=== PATIENT | female | born 2000 | race African-American/Black ===

== ENCOUNTER 2018-12-25 11:48 | Emergency (ER) | payer OTHER, SELFPAY ==
[2018-12-25] MEDS ORDERED: NA CHLORIDE 0.9% 1,000 ML ONE (12:25)
[2018-12-25 12:38] LABS: Urine Blood NEGATIVE (NEG); Urine Glucose NEGATIVE (NEG); Urine Protein 1+ (NEG); Urine pH 7.5 (5.0-7.0)
[2018-12-25 12:42] LABS: Absolute Lymphocytes (CBC) 1.4 K/uL (0.7-4.9); Basophils % 0.4 % (0-1.3); Eosinophils % 1.9 % (0-4.4); Hematocrit 43.1 % (36.0-45.0); Lymphocytes % 18.7 % (15.3-44.8); MPV 8.1 fL (7.6-11.3); Monocytes % 6.3 % (3.3-12.3); RBC Red Blood Cell Count 4.79 M/uL (3.86-4.86)
[2018-12-25 12:56] LABS: Urine Amorphous Sediment 2+ /HPF (NONE SEEN); Urine Bacteria <20 /HPF (<20); Urine Culture Reflex Order REFLEXED; Urine Mucus LIGHT /HPF (NONE SEEN); Urine RBC <5 /HPF (NONE SEEN)
[2018-12-25 12:58] LABS: BUN Blood Urea Nitrogen 7 mg/dL (7-18); Bicarbonate 24 mmol/L (21-32); Glucose Level 80 mg/dL (74-106); Potassium 3.8 mmol/L (3.5-5.1); Sodium Level 140 mmol/L (136-145)
--- NOTE | 2018-12-25 13:37 | ER ---
Nurse's Notes [facility] Name: Gina Duran Age: 18 yrs Sex: Female : 2000 Arrival Date: 12/25/2018 Time: 11:51 Bed 19 Private MD: Diagnosis: 8 weeks gestation of Presentation: 12/25 11:53 Presenting complaint: Patient states: i have this abdominal pain for a week now and its hj getting worse, reports nausea, denies vomiting; denies diarrhea; denies fever and chills;. Transition of care: patient was not received from another setting of care. Onset of symptoms was December 25, 2018. Risk Assessment: Do you want to hurt yourself or someone else? Patient reports no desire to harm self or others. Initial Sepsis Screen: Does the patient meet any 2 criteria? No. Patient's initial sepsis screen is negative. Does the patient have a suspected source of infection? No. Patient's initial sepsis screen is negative. Care prior to arrival: None. 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 - Social history:: Smoking status: Patient/guardian denies using tobacco. - Ebola Screening: : Patient negative for fever greater than or equal to 101.5 degrees Fahrenheit, and additional compatible Ebola Virus Disease symptoms Patient denies exposure to infectious person Patient denies travel to an Ebola-affected area in the 21 days before illness onset No symptoms or risks identified at this time. Screenin:10 Abuse screen: Denies threats or abuse. Nutritional screening: No deficits noted. em Tuberculosis screening: No symptoms or risk factors identified. Fall Risk None identified. Assessment: 12:10 General: Appears in no apparent distress. comfortable, Behavior is calm, cooperative, em Denies fever. Pain: Complains of pain in abdomen Pain currently is 7 out of 10 on a pain scale. Pain began x 1 week. Neuro: Level of Consciousness is awake, alert, obeys commands, Oriented to person, place, time, situation. Cardiovascular: Capillary refill < 3 seconds Patient's skin is warm and dry. Respiratory: Airway is patent Respiratory effort is even, unlabored, Respiratory pattern is regular, symmetrical. GI: Abdomen is flat, Bowel sounds present X 4 quads. Abd is soft X 4 quads Abd is non tender X 4 quads Reports nausea, Patient currently denies diarrhea, vomiting. : Denies burning with urination. Derm: Skin is intact, is healthy with good turgor, Skin is pink, warm \T\ dry. Musculoskeletal: Capillary refill < 3 seconds, Range of motion: intact in all extremities. 12:12 Reassessment: I agree with the assessment made with Kolton ORNELAS. 13:19 Reassessment: Patient appears in no apparent distress at this time. Patient and/or em family updated on plan of care and expected duration. Pain level reassessed. Patient is alert, oriented x 3, equal unlabored respirations, skin warm/dry/pink. Patient states feeling better. Patient states symptoms have improved. 13:32 Reassessment: US at bedside. em Vital Signs: 11:54 BP 114 / 78; Pulse 86; Resp 16; Temp 98.9(O); Pulse Ox 98% on R/A; Weight 54.43 kg; hj Height 5 ft. 6 in. (167.64 cm); Pain 7/10; 13:20 BP 118 / 89; Pulse 66; Resp 18; Pulse Ox 99% on R/A; em 11:54 Body Mass Index 19.37 (54.43 kg, 167.64 cm) ED Course: 11:51 Patient arrived in ED. mr 11:54 Triage completed. hj 11:54 Arm band placed on right wrist. hj 11:55 Ruthie Coyne FNP-C is PHCP. kb 11:55 Jas Sidhu MD is Attending Physician. kb 12:01 Kolton Billy LVN is Primary Nurse. em 12:10 Patient has correct armband on for positive identification. Bed in low position. Call em light in reach. Adult w/ patient. Pulse ox on. NIBP on. 12:10 Initial lab(s) drawn, by me, sent to lab. Inserted saline lock: 22 gauge in right em antecubital area, using aseptic technique. Blood collected. 13:38 US Transvaginal Ob In Process Unspecified. EDMS 13:47 No provider procedures requiring assistance completed. IV discontinued, intact, em bleeding controlled, No redness/swelling at site. Pressure dressing applied. Administered Medications: 12:06 CANCELLED (Physician Discretion): Zofran 4 mg IVP once; over 2 minutes kb 12:20 Drug: NS 0.9% 1000 ml Route: IV; Rate: 1000 ml; Site: right antecubital; em 13:40 Follow up: IV Status: Completed infusion; IV Intake: 1000ml em Intake: 13:40 IV: 1000ml; Total: 1000ml. em Outcome: 13:36 Discharge ordered by MD. kb 13:47 Discharged to home ambulatory. em 13:47 Condition: good 13:47 Discharge instructions given to patient, Instructed on discharge instructions, follow up and referral plans. Demonstrated understanding of instructions, follow-up care. 13:48 Patient left the ED. em Signatures: Dispatcher [employer] EDWY Ruthie Coyne, LITHOGRAPHIC GENERAL WORKER-C LITHOGRAPHIC GENERAL WORKER-Ckb Maksim Stanton, RN RN Nona Chaudhry mr Kolton Billy, THIRD LOADER THIRD LOADER Henrry Montalvo, RN RN jim Corrections: (The following items were deleted from the chart) 11:56 11:54 54.43 kg; Height 5 ft. 6 in.; BMI: 19.3; Pain 7/10; jim fernandez
--- NOTE | 2018-12-25 13:37 | EDPHYS ---
Physician Documentation [facility] Name: Gina Duran Age: 18 yrs Sex: Female : 2000 Arrival Date: 12/25/2018 Time: 11:51 Bed 19 Private MD: ED Physician Jas Sidhu HPI: 12/25 13:31 This 18 yrs old Black Female presents to ER via Ambulatory with complaints of Abdominal kb Pain. 13:31 The patient presents with abdominal pain in the upper abdomen. Onset: The kb symptoms/episode began/occurred 1 week(s) ago. The symptoms do not radiate. Associated signs and symptoms: Pertinent positives: nausea, Pertinent negatives: diarrhea, fever, vomiting. The symptoms are described as intermittent. Modifying factors: The symptoms are alleviated by nothing, the symptoms are aggravated by nothing. Severity of pain: At its worst the pain was moderate in the emergency department the pain is unchanged. The patient has not experienced similar symptoms in the past. The patient has not recently seen a physician. 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 - Social history:: Smoking status: Patient/guardian denies using tobacco. - Ebola Screening: : Patient negative for fever greater than or equal to 101.5 degrees Fahrenheit, and additional compatible Ebola Virus Disease symptoms Patient denies exposure to infectious person Patient denies travel to an Ebola-affected area in the 21 days before illness onset No symptoms or risks identified at this time. ROS: 13:29 Constitutional: Negative for fever, chills, and weight loss, Cardiovascular: Negative kb for chest pain, palpitations, and edema, Respiratory: Negative for shortness of breath, cough, wheezing, and pleuritic chest pain, Back: Negative for injury and pain, : Negative for injury, bleeding, discharge, and swelling, MS/Extremity: Negative for injury and deformity, Skin: Negative for injury, rash, and discoloration, Neuro: Negative for headache, weakness, numbness, tingling, and seizure. 13:29 Abdomen/GI: Positive for abdominal pain, nausea, Negative for vomiting, diarrhea, constipation, abdominal cramps, abdominal distension, anorexia. Exam: 13:29 Constitutional: This is a well developed, well nourished patient who is awake, alert, kb and in no acute distress. Head/Face: Normocephalic, atraumatic. ENT: Nares patent. No nasal discharge, no septal abnormalities noted. Tympanic membranes are normal and external auditory canals are clear. Oropharynx with no redness, swelling, or masses, exudates, or evidence of obstruction, uvula midline. Mucous membranes moist. Neck: Trachea midline, no thyromegaly or masses palpated, and no cervical lymphadenopathy. Supple, full range of motion without nuchal rigidity, or vertebral point tenderness. No Meningismus. Chest/axilla: Normal chest wall appearance and motion. Nontender with no deformity. No lesions are appreciated. Cardiovascular: Regular rate and rhythm with a normal S1 and S2. No gallops, murmurs, or rubs. Normal PMI, no JVD. No pulse deficits. Respiratory: Lungs have equal breath sounds bilaterally, clear to auscultation and percussion. No rales, rhonchi or wheezes noted. No increased work of breathing, no retractions or nasal flaring. Skin: Warm, dry with normal turgor. Normal color with no rashes, no lesions, and no evidence of cellulitis. MS/ Extremity: Pulses equal, no cyanosis. Neurovascular intact. Full, normal range of motion. Neuro: Awake and alert, GCS 15, oriented to person, place, time, and situation. Cranial nerves II-XII grossly intact. Motor strength 5/5 in all extremities. Sensory grossly intact. Cerebellar exam normal. Normal gait. 13:29 Abdomen/GI: Inspection: abdomen appears normal, Bowel sounds: normal, in all quadrants, Palpation: soft, in all quadrants, mild abdominal tenderness, in the right upper quadrant and right lower quadrant. Vital Signs: 11:54 BP 114 / 78; Pulse 86; Resp 16; Temp 98.9(O); Pulse Ox 98% on R/A; Weight 54.43 kg; hj Height 5 ft. 6 in. (167.64 cm); Pain 7/10; 13:20 BP 118 / 89; Pulse 66; Resp 18; Pulse Ox 99% on R/A; em 11:54 Body Mass Index 19.37 (54.43 kg, 167.64 cm) hj MDM: 11:57 Patient medically screened. kb 12:09 ED course: Pt educated on positive test. Pt did not know she was . Is kb on control, but hasn't had a period in 6-7 months.. 13:29 Data reviewed: vital signs, nurses notes. Data interpreted: Pulse oximetry: on room air kb is 99 %. Interpretation: normal. 13:34 Counseling: I had a detailed discussion with the patient and/or guardian regarding: the kb historical points, exam findings, and any diagnostic results supporting the discharge/admit diagnosis, lab results, radiology results, the need for outpatient follow up, an OB/Gyne specialist, to return to the emergency department if symptoms worsen or persist or if there are any questions or concerns that arise at home. 12/25 12:05 Order name: Basic Metabolic Panel; Complete Time: 13:13 kb 12/25 12:05 Order name: CBC with Diff; Complete Time: 12:49 kb 12/25 12:07 Order name: Quantitative Hcg; Complete Time: 13:18 kb 12/25 12:07 Order name: Abo/rh Typing; Complete Time: 12:49 kb 12/25 12:07 Order name: Urine Microscopic Only; Complete Time: 13:13 em 12/25 12:08 Order name: Urine Dipstick--Ancillary (enter results); Complete Time: 12:44 ms 12/25 11:56 Order name: Urine Dipstick-Ancillary (obtain specimen); Complete Time: 12:04 12/25 11:56 Order name: Urine Test (obtain specimen); Complete Time: 12:04 hj 12/25 12:08 Order name: Urine --Ancillary (enter results); Complete Time: 12:44 ms 12/25 12:58 Order name: Urine Culture EDMS 12/25 13:21 Order name: US Transvaginal Ob kb 12/25 12:05 Order name: IV Saline Lock; Complete Time: 12:20 kb 12/25 12:05 Order name: Labs collected and sent; Complete Time: 12:20 kb 12/25 12:07 Order name: NPO; Complete Time: 12:08 kb Administered Medications: 12:06 CANCELLED (Physician Discretion): Zofran 4 mg IVP once; over 2 minutes kb 12:20 Drug: NS 0.9% 1000 ml Route: IV; Rate: 1000 ml; Site: right antecubital; em 13:40 Follow up: IV Status: Completed infusion; IV Intake: 1000ml em Disposition: 12/25/18 13:36 Discharged to Home. Impression: 8 weeks gestation of . - Condition is Stable. - Discharge Instructions: First Trimester of , [id number]. - Medication Reconciliation Form, Thank You Letter, Antibiotic Education, Prescription Opioid Use form. - Follow up: Emergency Department; When: As needed; Reason: Worsening of condition. Follow up: Private Physician; When: 2 - 3 days; Reason: Recheck today's complaints, Continuance of care, Re-evaluation by your physician. Signatures: Dispatcher [employer] EDCT Ruthie Coyne, CASKET LINER-C CASKET LINER-CkMaksim Rodriguez, RN RN sg Kolton Billy, LACE PAPER MACHINE OPERATOR LACE PAPER MACHINE OPERATOR em Henrry Montalvo RN RN Corrections: (The following items were deleted from the chart) 12:06 12:05 Zofran 4 mg IVP once; over 2 minutes ordered. kb kb 12:13 12:06 Abdomen Pelvis W Con+CT.RAD.BRZ ordered. [facility] EDCT 13:48 13:36 12/25/2018 13:36 Discharged to Home. Impression: 8 weeks gestation of . em Condition is Stable. Forms are Medication Reconciliation Form, Thank You Letter, Antibiotic Education, Prescription Opioid Use. Follow up: Emergency Department; When: As needed; Reason: Worsening of condition. Follow up: Private Physician; When: 2 - 3 days; Reason: Recheck today's complaints, Continuance of care, Re-evaluation by your physician. kb
--- NOTE | 2018-12-25 14:33 | RAD REPORT ---
EXAM DESCRIPTION: US - Transvaginal OB - 12/25/2018 1:39 pm CLINICAL HISTORY: ABD CRAMPING, COMPARISON: <Comparisons> FINDINGS: A single gestational sac is seen within the uterus. The shape of the sac is within normal limits for gestational age. Within the sac is a single pole with crown-rump length of 2 cm, cor relating to estimated gestational age of 8 weeks 4 days. Estimated date of delivery is 08/02/2019. Heart rate is 160 BPM. The placenta is not yet developed due to early gestational age. The maternal adnexa and ovaries are within normal limits. Normal Doppler blood flow was demonstrated to both ovaries. IMPRESSION: Single live early intrauterine gestation with estimated gestational age of 8 weeks 4 day s gestational age, TRUMAN 08/02/2019. No unusual or unexpected finding.
== END 2018-12-25 13:48 | disposition home or self-care (01) ==
LOC: ER 11:48
DX: O26.891 Other specified pregnancy related conditions, first trimester (principal); R10.10 Upper abdominal pain, unspecified; Z3A.08 8 weeks gestation of pregnancy
CPT/HCPCS: 36415; 76817; 80048; 81003; 81015; 81025; 84702; 85025; 86900; 86901; 87086; 87088; 96360; 99284; J7030

== ENCOUNTER 2019-02-25 11:14 | Emergency (ER) | payer OTHER ==
[2019-02-25 11:54] LABS: Basophils % 0.2 % (0-1.3); Hematocrit 39.4 % (36.0-45.0); Lymphocytes % 13.2 % (15.3-44.8); MPV 8.5 fL (7.6-11.3); RBC Red Blood Cell Count 4.41 M/uL (3.86-4.86)
[2019-02-25 12:13] LABS: ALT/SGPT 31 U/L (12-78); AST/SGOT 20 U/L (15-37); Albumin 3.5 g/dL (3.4-5.0); Alkaline Phosphatase 53 U/L (45-117); BUN Blood Urea Nitrogen 11 mg/dL (7-18); Bicarbonate 21 mmol/L (21-32); Bilirubin Direct 0.2 mg/dL (0-0.2); Bilirubin Total 1.2 mg/dL (0.2-1.0); Glucose Level 75 mg/dL (74-106); Lipase 61 U/L (73-393); Potassium 3.6 mmol/L (3.5-5.1); Protein, Total 7.4 g/dL (6.4-8.2); Sodium Level 139 mmol/L (136-145)
[2019-02-25] MEDS ORDERED: NA CHLORIDE 0.9% 1,000 ML ONE ×2 (12:23→13:03)
[2019-02-25] MEDS ORDERED: PROMETHAZINE 25 MG/ML VIAL ONE (12:23)
[2019-02-25 12:46] LABS: Urine Blood NEGATIVE (NEG); Urine Glucose NEGATIVE (NEG); Urine Protein TRACE (NEG); Urine pH 5.5 (5.0-7.0)
--- NOTE | 2019-02-25 13:25 | EDPHYS ---
Physician Documentation [facility] Name: Gina Duran Age: 18 yrs Sex: Female : 2000 Arrival Date: 02/25/2019 Time: 11:16 Bed 7 Private MD: ED Physician Eleazar Rogers HPI: 02/25 12:07 This 18 yrs old Black Female presents to ER via Ambulatory with complaints of Abdominal kb Pain - 16 wks preg. 12:07 The patient presents to the emergency department with nausea, vomiting, diarrhea. kb Onset: The symptoms/episode began/occurred 3 day(s) ago. Possible causes: unknown. The symptoms are aggravated by nothing. The symptoms are alleviated by nothing. Associated signs and symptoms: Pertinent positives: diarrhea, nausea, vomiting. Severity of symptoms: At their worst the symptoms were moderate in the emergency department the symptoms are unchanged. The patient has not experienced similar symptoms in the past. The patient has not recently seen a physician. 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 - Social history:: Smoking status: Patient/guardian denies using tobacco. - Ebola Screening: : No symptoms or risks identified at this time. ROS: 12:05 Constitutional: Negative for fever, chills, and weight loss, Neck: Negative for injury, kb pain, and swelling, Cardiovascular: Negative for chest pain, palpitations, and edema, Respiratory: Negative for shortness of breath, cough, wheezing, and pleuritic chest pain, Back: Negative for injury and pain, : Negative for injury, bleeding, discharge, and swelling, MS/Extremity: Negative for injury and deformity, Skin: Negative for injury, rash, and discoloration, Neuro: Negative for headache, weakness, numbness, tingling, and seizure. 12:05 Abdomen/GI: Positive for abdominal pain, nausea, vomiting, and diarrhea. Exam: 12:06 Constitutional: This is a well developed, well nourished patient who is awake, alert, kb and in no acute distress. Head/Face: Normocephalic, atraumatic. Neck: Trachea midline, no thyromegaly or masses palpated, and no cervical lymphadenopathy. Supple, full range of motion without nuchal rigidity, or vertebral point tenderness. No Meningismus. Chest/axilla: Normal chest wall appearance and motion. Nontender with no deformity. No lesions are appreciated. Cardiovascular: Regular rate and rhythm with a normal S1 and S2. No gallops, murmurs, or rubs. Normal PMI, no JVD. No pulse deficits. Respiratory: Lungs have equal breath sounds bilaterally, clear to auscultation and percussion. No rales, rhonchi or wheezes noted. No increased work of breathing, no retractions or nasal flaring. Back: No spinal tenderness. No costovertebral tenderness. Full range of motion. Skin: Warm, dry with normal turgor. Normal color with no rashes, no lesions, and no evidence of cellulitis. MS/ Extremity: Pulses equal, no cyanosis. Neurovascular intact. Full, normal range of motion. Neuro: Awake and alert, GCS 15, oriented to person, place, time, and situation. Cranial nerves II-XII grossly intact. Motor strength 5/5 in all extremities. Sensory grossly intact. Cerebellar exam normal. Normal gait. 12:06 Abdomen/GI: Inspection: gravid appearance, is noted, Bowel sounds: normal, in all quadrants, Palpation: abdomen is soft and non-tender, in all quadrants. Vital Signs: 11:20 BP 121 / 76; Pulse 98; Resp 16; Temp 97.5; Pulse Ox 100% on R/A; Weight 53.98 kg; la1 Height 5 ft. 6 in. (167.64 cm); 12:39 BP 116 / 75; Pulse 68; Resp 16; Pulse Ox 97% ; bp 13:31 BP 99 / 86; Pulse 70; Resp 17; Pulse Ox 95% ; bp 11:20 Body Mass Index 19.21 (53.98 kg, 167.64 cm) la1 MDM: 11:21 Patient medically screened. kb 12:07 Data reviewed: vital signs, nurses notes. Data interpreted: Pulse oximetry: on room air kb is 100 %. Interpretation: normal. 13:21 Counseling: I had a detailed discussion with the patient and/or guardian regarding: the kb historical points, exam findings, and any diagnostic results supporting the discharge/admit diagnosis, lab results, the need for outpatient follow up, a family practitioner, to return to the emergency department if symptoms worsen or persist or if there are any questions or concerns that arise at home. 13:24 ED course: Pt tolerating PO intake. . kb 02/25 11:22 Order name: Basic Metabolic Panel; Complete Time: 12:14 kb 02/25 11:22 Order name: CBC with Diff; Complete Time: 12:03 kb 02/25 11:22 Order name: Hepatic Function; Complete Time: 12:14 kb 02/25 11:22 Order name: Lipase; Complete Time: 12:14 kb 02/25 12:33 Order name: Urine Dipstick--Ancillary (enter results); Complete Time: 12:49 eb 02/25 12:33 Order name: Urine --Ancillary (enter results); Complete Time: 12:49 eb 02/25 11:22 Order name: IV Saline Lock; Complete Time: 12:06 kb 02/25 11:22 Order name: Labs collected and sent; Complete Time: 12:06 kb 02/25 11:22 Order name: FHT's; Complete Time: 12:56 kb 02/25 12:14 Order name: PO challenge; Complete Time: 12:57 kb Administered Medications: 11:45 Drug: NS 0.9% 1000 ml Route: IV; Rate: 1000 ml; Site: right antecubital; bp 12:45 Follow up: IV Status: Completed infusion; IV Intake: 1000ml bp 13:04 Drug: NS 0.9% 1000 ml Route: IV; Rate: 1000 ml; Site: right antecubital; ae4 13:44 Follow up: IV Status: Completed infusion; IV Intake: 1000ml bp 13:36 Not Given (Patient Refused): Phenergan 6.25 mg IVP once bp Disposition: 02/26 07:10 Co-signature as Attending Physician, Eleazar Rogers MD. ma2 Disposition: 02/25/19 13:24 Discharged to Home. Impression: Vomiting, unspecified, Diarrhea, unspecified. - Condition is Stable. - Discharge Instructions: Food Choices to Help Relieve Diarrhea, Adult, Viral Gastroenteritis, Adult, [id number]. - Prescriptions for promethazine 25 mg Oral Tablet - take 1 tablet by ORAL route every 8 hours As needed; 10 tablet. - Medication Reconciliation Form, Thank You Letter, Antibiotic Education, Prescription Opioid Use form. - Follow up: Emergency Department; When: As needed; Reason: Worsening of condition. Follow up: Private Physician; When: 2 - 3 days; Reason: Recheck today's complaints, Continuance of care, Re-evaluation by your physician. Signatures: Dispatcher [employer] EDRuthie Wiseman, NELLY-Bang VILLEGAS-Nadeem Blancas RN RN la1 Allan Ybarra RN RN bp Eleazar Rogers MD MD ma2 Mark Sheridan RN RN ae4 Corrections: (The following items were deleted from the chart) 02/25 13:44 13:24 02/25/2019 13:24 Discharged to Home. Impression: Vomiting, unspecified; Diarrhea, bp unspecified. Condition is Stable. Forms are Medication Reconciliation Form, Thank You Letter, Antibiotic Education, Prescription Opioid Use. Follow up: Emergency Department; When: As needed; Reason: Worsening of condition. Follow up: Private Physician; When: 2 - 3 days; Reason: Recheck today's complaints, Continuance of care, Re-evaluation by your physician. kb
--- NOTE | 2019-02-25 13:25 | ER ---
Nurse's Notes [facility] Name: Gina Duran Age: 18 yrs Sex: Female : 2000 Arrival Date: 02/25/2019 Time: 11:16 Bed 7 Private MD: Diagnosis: Vomiting, unspecified;Diarrhea, unspecified Presentation: 02/25 11:19 Presenting complaint: Patient states: I have been having trouble keeping food down for la1 the last few days and having some diarrhea. Transition of care: patient was not received from another setting of care. Onset of symptoms was February 25, 2019. Risk Assessment: Do you want to hurt yourself or someone else? Patient reports no desire to harm self or others. Initial Sepsis Screen: Does the patient meet any 2 criteria? No. Patient's initial sepsis screen is negative. Does the patient have a suspected source of infection? No. Patient's initial sepsis screen is negative. Care prior to arrival: None. 11:19 Method Of Arrival: Ambulatory la1 11:19 Acuity: BARBARA 3 la1 Triage Assessment: 11:20 General: Appears in no apparent distress. comfortable, Behavior is cooperative, bp appropriate for age, anxious. Pain: Complains of pain in abdomen. EENT: No deficits noted. Neuro: No deficits noted. Cardiovascular: No deficits noted. Respiratory: No deficits noted. GI: Abdomen is non-distended. : No signs and/or symptoms were reported regarding the genitourinary system. Derm: No deficits noted. Musculoskeletal: No deficits noted. EDUCATION DIAGNOSTICIAN: 11:20 1, LMP 10/30/2018 la1 Historical: - Allergies: 11:19 No Known Allergies; la1 - PMHx: 11:19 None; la1 - Immunization history:: Adult Immunizations up to date. - Social history:: Smoking status: Patient/guardian denies using tobacco. - Ebola Screening: : No symptoms or risks identified at this time. Screenin:09 Abuse screen: Denies threats or abuse. Denies injuries from another. Nutritional bp screening: No deficits noted. Tuberculosis screening: No symptoms or risk factors identified. Fall Risk None identified. Assessment: 11:20 General: SEE TRIAGE NOTE. bp 11:30 GI: Bowel sounds present X 4 quads. Abd is soft and non tender X 4 quads. bp 12:39 Reassessment: ALL CURRENT ORDERS COMPLETED, IVF INFUSING. bp 13:42 Reassessment: PT D/C HOME AMBULATORY, DX WITH VIRAL GASTROENTERITIS. bp Vital Signs: 11:20 BP 121 / 76; Pulse 98; Resp 16; Temp 97.5; Pulse Ox 100% on R/A; Weight 53.98 kg; la1 Height 5 ft. 6 in. (167.64 cm); 12:39 BP 116 / 75; Pulse 68; Resp 16; Pulse Ox 97% ; bp 13:31 BP 99 / 86; Pulse 70; Resp 17; Pulse Ox 95% ; bp 11:20 Body Mass Index 19.21 (53.98 kg, 167.64 cm) la1 Vitals: 12:56 Heart Tones 128 bpm. ae4 ED Course: 11:16 Patient arrived in ED. as 11:17 Ruthie Coyne FNP-C is [facility]. kb 11:17 Eleazar Rogers MD is Attending Physician. kb 11:19 Arm band placed on right wrist. la1 11:20 Triage completed. la1 11:30 Inserted saline lock: 20 gauge in right antecubital area, using aseptic technique. bp Blood collected. 11:33 Urine collected: clean catch specimen, clear, curly colored. jb1 11:35 Allan Ybarra, RN is Primary Nurse. bp 12:09 Patient has correct armband on for positive identification. Bed in low position. Call bp light in reach. Side rails up X2. Adult w/ patient. 12:58 PO fluids given. PO challenge. ae4 13:43 No provider procedures requiring assistance completed. IV discontinued, intact, bp bleeding controlled, No redness/swelling at site. Pressure dressing applied. Administered Medications: 11:45 Drug: NS 0.9% 1000 ml Route: IV; Rate: 1000 ml; Site: right antecubital; bp 12:45 Follow up: IV Status: Completed infusion; IV Intake: 1000ml bp 13:04 Drug: NS 0.9% 1000 ml Route: IV; Rate: 1000 ml; Site: right antecubital; ae4 13:44 Follow up: IV Status: Completed infusion; IV Intake: 1000ml bp 13:36 Not Given (Patient Refused): Phenergan 6.25 mg IVP once bp Intake: 12:45 IV: 1000ml; Total: 1000ml. bp 13:44 IV: 1000ml; Total: 2000ml. bp Outcome: 13:24 Discharge ordered by . adams 13:43 Discharged to home ambulatory. bp 13:43 Condition: stable 13:43 Discharge instructions given to patient, Instructed on discharge instructions, follow up and referral plans. medication usage, Demonstrated understanding of instructions, follow-up care, medications, Prescriptions given X 1. 13:44 Patient left the ED. bp Signatures: Denis Llanos jb1 Ruthie Coyne, PANCAKE PROFESSIONAL-C PANCAKE PROFESSIONAL-Marlene Oropeza Lee, RN RN la1 Allan Ybarra, RN RN bp Mark Sheridan, RN RN ae4
[2019-02-25 13:52] VITALS: TEMP 97.5
[2019-02-25 13:55] VITALS: BP 99/86; O2SAT 95
== END 2019-02-25 13:44 | disposition home or self-care (01) ==
LOC: ER 11:14
DX: O26.892 Other specified pregnancy related conditions, second trimester (principal); R19.7 Diarrhea, unspecified; R11.10 Vomiting, unspecified
CPT/HCPCS: 96361; 85025; 80048; 36415; 81025; 80076; 81003; 83690; 96360; 99284; J2550; J7030 ×2

== ENCOUNTER 2019-04-08 01:39 | Emergency (ER) | payer OTHER ==
[2019-04-08 02:13] LABS: Urine Blood NEGATIVE (NEG); Urine Glucose NEGATIVE (NEG); Urine Protein NEGATIVE (NEG); Urine Specific Gravity >1.030 (1.005-1.030)
[2019-04-08] MEDS ORDERED: NA CHLORIDE 0.9% 1,000 ML ONE (02:13)
[2019-04-08 02:42] LABS: Absolute Lymphocytes (CBC) 1.7 K/uL (0.7-4.9); Basophils % 0.4 % (0-1.3); MPV 8.5 fL (7.6-11.3)
[2019-04-08 03:26] LABS: BUN Blood Urea Nitrogen 5 mg/dL (7-18); Bicarbonate 26 mmol/L (21-32); Glucose Level 101 mg/dL (74-106); HCG, Quantitative 30451 mIU/mL (1-3); Potassium 3.1 mmol/L (3.5-5.1); Sodium Level 139 mmol/L (136-145)
--- NOTE | 2019-04-08 04:38 | ER ---
Nurse's Notes [facility] Name: Gina Duran Age: 18 yrs Sex: Female : 2000 Arrival Date: 04/08/2019 Time: 01:41 Bed 7 Private MD: Diagnosis: care for patient with recurrent loss, second trimester-vaginal bleeding, ROBINSON 3;Hypokalemia;Oligohydramnios, second trimester Presentation: 04/08 01:50 Presenting complaint: Patient states: Vaginal bleeding with bright red clots since lp1 yesterday at midnight, pelvic cramping and right flank pain; States about 22 weeks . Transition of care: patient was not received from another setting of care. Onset of symptoms was April 07, 2019 at 00:00. Risk Assessment: Do you want to hurt yourself or someone else? Patient reports no desire to harm self or others. Initial Sepsis Screen: Does the patient meet any 2 criteria? No. Patient's initial sepsis screen is negative. Does the patient have a suspected source of infection? No. Patient's initial sepsis screen is negative. Care prior to arrival: None. 01:50 Method Of Arrival: Ambulatory lp1 01:50 Acuity: BARBARA 3 lp1 STICK PULLER: 01:51 LMP 11/03/2018, Verified, EDC 08/10/2019, Gestational age from LMP: 22 weeks 2 lp1 days 02:32 1, Full Term 0, Premature 0, 0, Living 0 roni Historical: - Allergies: 01:52 No Known Allergies; lp1 - Home Meds: 01:52 Vitamin Oral tab 1 tab once daily [Active]; lp1 - PMHx: 01:52 None; lp1 - PSHx: 01:52 None; lp1 - Immunization history:: Adult Immunizations up to date. - Social history:: Smoking status: Patient/guardian denies using tobacco. - Ebola Screening: : No symptoms or risks identified at this time. - Family history:: not pertinent. Screenin:52 Abuse screen: Denies threats or abuse. Denies injuries from another. Nutritional lp1 screening: No deficits noted. Tuberculosis screening: No symptoms or risk factors identified. Fall Risk None identified. Assessment: 02:00 General: Appears in no apparent distress. Behavior is calm, cooperative, appropriate lp1 for age. Pain: Complains of pain in right low back and suprapubic area Pain currently is 7 out of 10 on a pain scale. Quality of pain is described as sharp, Pain began 1 day ago. Neuro: Level of Consciousness is awake, alert, obeys commands, Oriented to person, place, time, situation. Cardiovascular: Patient's skin is warm and dry. Respiratory: Respiratory effort is even, unlabored. GI: Abdomen is non-distended. : Reports vaginal bleeding that is bright red, with clots. EENT: No signs and/or symptoms were reported regarding the EENT system. Derm: Skin is intact, Skin is dry, Skin is normal. 03:00 Reassessment: Patient appears in no apparent distress at this time. No changes from lp1 previously documented assessment. 03:44 Reassessment: Patient appears in no apparent distress at this time. Patient returned lp1 from Ultrasound at this time. 05:30 Reassessment: Report given to SRINIVAS Martinez at [facility]. lp1 05:50 Reassessment: [facility] at bedside for transfer. lp1 Vital Signs: 01:51 BP 120 / 79; Pulse 78; Resp 16; Temp 97.8(O); Pulse Ox 100% on R/A; Weight 55.79 kg; lp1 Height 5 ft. 6 in. (167.64 cm); Pain 6/10; 03:44 BP 114 / 67; Pulse 70; Resp 16; Pulse Ox 100% on R/A; lp1 05:20 BP 122 / 87; Pulse 69; Resp 16; Pulse Ox 100% on R/A; lp1 01:51 Body Mass Index 19.85 (55.79 kg, 167.64 cm) lp1 ED Course: 01:41 Patient arrived in ED. cl3 01:51 Triage completed. lp1 01:51 Arm band placed on. lp1 01:58 Chuck Flores MD is Attending Physician. roni 02:00 Patient has correct armband on for positive identification. lp1 02:11 Alem Rondon, SRINIVAS is Primary Nurse. lp1 02:14 Inserted saline lock: 20 gauge in right antecubital area, using aseptic technique. ar5 Blood collected. 03:46 US Transvaginal Ob In Process Unspecified. EDMS 06:02 No provider procedures requiring assistance completed. Patient transferred, IV remains lp1 in place. Administered Medications: 02:16 Drug: NS 0.9% 1000 ml Route: IV; Rate: 1 bolus; Site: right antecubital; lp1 Point of Care Testing: Urine : 02:30 hCG Reading: Positive; Control Reading: Positive; lp1 Outcome: 04:37 ER care complete, transfer ordered by MD. tamayo 06:03 Transferred by ground EMS to [facility], Transfer form lp1 completed. X-rays sent w/ patient. 06:03 Condition: stable 06:03 Instructed on the need for transfer. 06:04 Patient left the ED. lp1 Signatures: Dispatcher [employer] EDMS Chuck Flores MD MD cha Pena, Laura, RN RN lp1 [place] Ward ar5 Duke Simon cl3 Corrections: (The following items were deleted from the chart) 02:31 01:50 Presenting complaint: Patient states: Vaginal bleeding with bright red clots lp1 since yesterday at midnight, pelvic cramping and right flank pain; States about 2 weeks lp1
--- NOTE | 2019-04-08 04:38 | EDPHYS ---
Physician Documentation [facility] Name: Gina Duran Age: 18 yrs Sex: Female : 2000 Arrival Date: 04/08/2019 Time: 01:41 Bed 7 Private MD: ED Physician Chuck Flores HPI: 04/08 02:32 This 18 yrs old Black Female presents to ER via Ambulatory with complaints of Vaginal roni Bleeding, + Preg <12wks, Vomiting. 02:32 The patient presents to the emergency department with abdominal pain, of the right roni upper quadrant, left upper quadrant, right lower quadrant and left lower quadrant. The estimated gestational age is 22 weeks. Associated signs and symptoms: Pertinent positives:. The patient has not experienced similar symptoms in the past. 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 - Social history:: Smoking status: Patient/guardian denies using tobacco. - Ebola Screening: : No symptoms or risks identified at this time. - Family history:: not pertinent. ROS: 02:32 Constitutional: Negative for fever, chills, and weight loss, Eyes: Negative for injury, roni pain, redness, and discharge, ENT: Negative for injury, pain, and discharge, Neck: Negative for injury, pain, and swelling, Cardiovascular: Negative for chest pain, palpitations, and edema, Respiratory: Negative for shortness of breath, cough, wheezing, and pleuritic chest pain, Back: Negative for injury and pain, : Negative for injury, bleeding, discharge, and swelling, MS/Extremity: Negative for injury and deformity, Skin: Negative for injury, rash, and discoloration, Neuro: Negative for headache, weakness, numbness, tingling, and seizure, Psych: Negative for depression, anxiety, suicide ideation, homicidal ideation, and hallucinations, Allergy/Immunology: Negative for hives, rash, and allergies, Endocrine: Negative for neck swelling, polydipsia, polyuria, polyphagia, and marked weight changes, Hematologic/Lymphatic: Negative for swollen nodes, abnormal bleeding, and unusual bruising. 02:32 Abdomen/GI: Positive for abdominal pain. 02:32 : Positive for pelvic pain, vaginal bleeding. Exam: 02:32 Constitutional: This is a well developed, well nourished patient who is awake, alert, roni and in no acute distress. Head/Face: Normocephalic, atraumatic. Eyes: Pupils equal round and reactive to light, extra-ocular motions intact. Lids and lashes normal. Conjunctiva and sclera are non-icteric and not injected. Cornea within normal limits. Periorbital areas with no swelling, redness, or edema. ENT: Nares patent. No nasal discharge, no septal abnormalities noted. Tympanic membranes are normal and external auditory canals are clear. Oropharynx with no redness, swelling, or masses, exudates, or evidence of obstruction, uvula midline. Mucous membranes moist. Neck: Trachea midline, no thyromegaly or masses palpated, and no cervical lymphadenopathy. Supple, full range of motion without nuchal rigidity, or vertebral point tenderness. No Meningismus. Chest/axilla: Normal chest wall appearance and motion. Nontender with no deformity. No lesions are appreciated. Cardiovascular: Regular rate and rhythm with a normal S1 and S2. No gallops, murmurs, or rubs. Normal PMI, no JVD. No pulse deficits. Respiratory: Lungs have equal breath sounds bilaterally, clear to auscultation and percussion. No rales, rhonchi or wheezes noted. No increased work of breathing, no retractions or nasal flaring. Abdomen/GI: Soft, non-tender, with normal bowel sounds. No distension or tympany. No guarding or rebound. No evidence of tenderness throughout. Back: No spinal tenderness. No costovertebral tenderness. Full range of motion. Skin: Warm, dry with normal turgor. Normal color with no rashes, no lesions, and no evidence of cellulitis. MS/ Extremity: Pulses equal, no cyanosis. Neurovascular intact. Full, normal range of motion. Neuro: Awake and alert, GCS 15, oriented to person, place, time, and situation. Cranial nerves II-XII grossly intact. Motor strength 5/5 in all extremities. Sensory grossly intact. Cerebellar exam normal. Normal gait. Psych: Awake, alert, with orientation to person, place and time. Behavior, mood, and affect are within normal limits. 02:32 Abdomen/GI: Bowel sounds: normal, active, Palpation: abdomen is soft and non-tender, in all quadrants, Liver: no appreciated palpable abnormalities, Hernia: not appreciated. Vital Signs: 01:51 BP 120 / 79; Pulse 78; Resp 16; Temp 97.8(O); Pulse Ox 100% on R/A; Weight 55.79 kg; lp1 Height 5 ft. 6 in. (167.64 cm); Pain 6/10; 03:44 BP 114 / 67; Pulse 70; Resp 16; Pulse Ox 100% on R/A; lp1 05:20 BP 122 / 87; Pulse 69; Resp 16; Pulse Ox 100% on R/A; lp1 01:51 Body Mass Index 19.85 (55.79 kg, 167.64 cm) lp1 MDM: 02:03 Patient medically screened. [facility] 02:35 Data reviewed: vital signs, nurses notes, lab test result(s), radiologic studies, roni ultrasound. 04/08 01:59 Order name: Quantitative Hcg; Complete Time: 04:34 [facility] 04/08 01:59 Order name: Abo/rh Typing; Complete Time: 04:34 [facility] 04/08 01:59 Order name: Basic Metabolic Panel; Complete Time: 04:34 [facility] 04/08 01:59 Order name: CBC with Diff; Complete Time: 03:13 [facility] 04/08 02:02 Order name: Urine Dipstick--Ancillary (enter results); Complete Time: 02:40 04/08 02:02 Order name: Urine --Ancillary (enter results); Complete Time: 02:40 04/08 01:59 Order name: Urine Test (obtain specimen); Complete Time: 02:05 [facility] 04/08 01:59 Order name: IV Saline Lock; Complete Time: 02:17 [facility] 04/08 01:59 Order name: Labs collected and sent; Complete Time: 02:17 [facility] 04/08 01:59 Order name: NPO; Complete Time: 02:05 [facility] 04/08 01:59 Order name: Urine Dipstick-Ancillary (obtain specimen); Complete Time: 02:05 [facility] 04/08 01:59 Order name: US Transvaginal Ob [facility] 04/08 02:02 Order name: Urine Dipstick-Ancillary (obtain specimen); Complete Time: 02:04 sp Administered Medications: 02:16 Drug: NS 0.9% 1000 ml Route: IV; Rate: 1 bolus; Site: right antecubital; lp1 Point of Care Testing: Urine : 02:30 hCG Reading: Positive; Control Reading: Positive; lp1 Disposition: 04/08/19 04:37 Transfer ordered to [facility]. Diagnosis are care for patient with recurrent loss, second trimester - vaginal bleeding, ROBINSON 3, Hypokalemia, Oligohydramnios, second trimester. - Reason for transfer: Higher level of care. - Accepting physician is to [facility], ob. - Condition is Fair. - Problem is new. - Symptoms have improved. Signatures: Dispatcher [employer] EDChuck Kamara MD MD cha Pinkerton, Shawna sp Pena, Laura, RN RN lp1 Corrections: (The following items were deleted from the chart) 05:03 04:37 04/08/2019 04:37 Transfer ordered to [facility]. Diagnosis is care [facility] for patient with recurrent loss, second trimester - vaginal bleeding, ROBINSON 3; Hypokalemia. Reason for transfer: Higher level of care. Accepting physician is to [facility], ob. Condition is Fair. Problem is new. Symptoms have improved. [facility] 06:04 05:03 04/08/2019 04:37 Transfer ordered to [facility]. Diagnosis is care 1 for patient with recurrent loss, second trimester - vaginal bleeding, ROBINSON 3; Hypokalemia; Oligohydramnios, second trimester. Reason for transfer: Higher level of care. Accepting physician is to [facility], ob. Condition is Fair. Problem is new. Symptoms have improved. [facility]
[2019-04-08 06:12] VITALS: TEMP 97.8; O2SAT 100
[2019-04-09 20:10] VITALS: BP 122/87
--- NOTE | 2019-04-10 09:54 | RAD REPORT ---
EXAM DESCRIPTION: US - Transvaginal OB - 04/08/2019 3:46 am ADDENDUM #1 Clinical findings were discussed with and acknowledged by HIMANSHU Evans on 04/08/2019 4: 12 AM CS T. Electronically signed by: Stefan Strong MD 04/09/2019 1:44 AM AUTO PAINTER End of Addendum CLINICAL HISTORY: ABD CRAMPING, COMPARISON: None. TECHNIQUE: US TRANSVAGINAL on 04/08/2019 1:59 AM CDT FINDINGS: Cervix measures 3 cm. heart rate is 140 beats per. Placenta is posterior and is unre markable. Biparietal diameter measures 5.6 cm corresponding to 23 weeks zero days. Head circumference measures 20.6 cm corresponding to 22 weeks five days. Abdominal circumference measures 17.1 cm corre sponding to 22 weeks zero days. Femur length measures 4 cm corresponding to 22 weeks six days. Humeru s measures 3.8 cm corresponding to 23 weeks four days. ROBINSON is low at 3.3 cm. IMPRESSION: Oligohydramnios. Electronically signed by: Stefan Strong MD 04/08/2019 4:08 AM CDT Due to temporary technical issues with the PACS/Fluency reporting system, reports are being signed by the in house radiologist as a courtesy to ensure prompt reporting. The interpreting radiologist is f ully responsible for the content of the report.
== END 2019-04-08 06:04 | disposition short-term general hospital (02) ==
LOC: ER 01:39
DX: O26.22 Pregnancy care for patient with recurrent pregnancy loss, second trimester (principal); O20.9 Hemorrhage in early pregnancy, unspecified; O41.02X0 Oligohydramnios, second trimester, not applicable or unspecified; E87.6 Hypokalemia
CPT/HCPCS: 85025; 80048; 36415; 86900; 81025; 86901; 84702; 81003; 76817; 99285; J7030